=== PATIENT | male | born 1950 | race Caucasian/White ===

== ENCOUNTER → 2017-08-10 09:36 | Outpatient (CLI) | payer MEDICARE, OTHER ==
[2014-02-10 07:17] VITALS: BMI 40.5
[~2017-08-10 09:36] MED LIST: AMOXICILLIN500 M1 PO; BACTROBAN 22 GM22 GM TOPICAL; BACTROBAN CREAM15 GM TP; BUMETANIDE0.5 MG PO; BUMEX 1 MG TAB1 MG PO; CARDURA8 MG PO; CIALIS10 MG PO; HYZAAR 100-12.51 TAB PO; K-DUR20 MEQ PO; LEVOTHROID50 MCG PO; PRADAXA150 MG PO; PRILOSEC20 MG PO; RAPAFLO8 MG PO
== END | disposition home or self-care (01) ==
LOC: D.CT 09:30
DX: R31.0 Gross hematuria (principal)

== ENCOUNTER → 2017-12-22 15:31 | Outpatient (CLI) | payer MEDICARE, OTHER ==
[2014-02-10 07:17] VITALS: BMI 40.5
== END | disposition home or self-care (01) ==
LOC: D.CT 15:31
DX: R31.9 Hematuria, unspecified (principal)